=== PATIENT | male | born 1965 | race Caucasian/White ===

== ENCOUNTER 2021-01-01 15:30 | Emergency (ER) | payer MEDICAID, MEDICARE ==
[2021-01-01] MEDS ORDERED: cefTRIAXone 1 GM, Lidocaine 1% 2.1 ML IM ONE ×2 (16:35)
--- NOTE | 2021-01-01 16:52 | EDM.PDOC ---
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 They are concerned that he is developing cellulitis, he does not have a fever, increased pain or other symptoms. Onset: Unknown/Unsure Location: Reports: Lower Extremity, Right Associated Symptoms: Denies: Fever/Chills, Loss of Appetite, Malaise, Shortness of Breath Right Leg Pain Score (Numeric/FACES): 5 - Related Data Allergies Allergy/AdvReac Type Severity Reaction Status Date / Time No Known Allergies Allergy Verified 01/01/21 16:00 Home Meds: Home Meds Acetaminophen 650 mg PO Q6HR PRN 01/01/21 [History] Aspirin 325 mg PO DAILY 01/01/21 [History] Cholecalciferol (Vitamin D3) [Vitamin D3] 1,000 unit PO DAILY 01/01/21 [History] Docusate Sodium/Sennosides [Senokot-S] 1 each PO BID 01/01/21 [History] FLUoxetine [PROzac] 20 mg PO DAILY 01/01/21 [History] Mecobalamin [B12 Active] 1,000 mcg PO DAILY 01/01/21 [History] Nicotine [Nicotine Patch] 7 mg TD DAILY 01/01/21 [History] Pantoprazole [ProTONIX] 40 mg PO BID 01/01/21 [History] Phenytoin 100 mg PO DAILY 01/01/21 [History] Phenytoin Sodium Extended 200 mg PO BEDTIME 01/01/21 [History] Polyethylene Glycol [Polyox Wsr-301] 17 gm MC DAILY 01/01/21 [History] dexAMETHasone [Dexamethasone] 2 mg PO DAILY 01/01/21 [History] dronabinoL [Dronabinol] 2.5 mg PO BID 01/01/21 [History] levETIRAcetam [Levetiracetam] 1,000 mg PO BID 01/01/21 [History] Past Medical History Other HEENT History: blind in right eye Other Neuro History: glioblastoma Social & Family History - Tobacco Use Tobacco Use Status *Q: Current Every Day Tobacco User Years of Tobacco use: 37 Packs/Tins Daily: 1 - Caffeine Use Caffeine Use: Reports: Coffee - Recreational Drug Use Recreational Drug Use: No Review of Systems - Review of Systems Review Of Systems: See Below Constitutional: Denies: Fever Respiratory: Denies: Shortness of Breath Cardiovascular: Denies: Chest Pain GI/Abdominal: Denies: Abdominal Pain, Nausea, Vomiting Skin: Reports: Erythema, Other (Chronic ulceration right ankle) Neurological: Reports: Confusion (Stable intermittent confusion, patient is being treated for glioblastoma) ED EXAM, GENERAL - Physical Exam Exam: See Below Exam Limited By: No Limitations General Appearance: Alert, No Apparent Distress Head: Atraumatic Respiratory/Chest: No Respiratory Distress, Lungs Clear Cardiovascular: Regular Rate, Rhythm Neurological: Alert, Oriented Psychiatric: Flat Affect Skin Exam: Warm, Dry, Erythema, Other (A dressing is over his chronic ulceration of the right ankle, this was not removed. There was mild erythema around the dressing but no significant warmth or tenderness) Course - Vital Signs Last Recorded V/S: Last Vital Signs Temp 97.3 F 01/01/21 16:22 Pulse 76 01/01/21 16:22 Resp 16 01/01/21 16:22 BP 136/95 H 01/01/21 16:22 Pulse Ox 92 L 01/01/21 16:22 - Orders/Labs/Meds Meds: Medications Discontinued Medications Generic Name Dose Route Start Last Admin Trade Name Dhavalq PRN Reason Stop Dose Admin Ceftriaxone Sodium 1 gm/ 0 gm 01/01/21 16:35 01/01/21 16:51 Lidocaine HCl 2.1 ml IM 01/01/21 16:36 1 inj ONETIME ONE Administration - Re-Assessments/Exams Free Text/Narrative Re-Assessment/Exam: 01/01/21 16:54 Patient was given 1 g of IM Rocephin with lidocaine to cover any early cellulitis before his appointment tomorrow. Otherwise he can continue his regular medications. Departure - Departure Time of Disposition: 16:59 Disposition: Home, Self-Care 01 Clinical Impression: Cellulitis of right ankle - Discharge Information Instructions: Cellulitis, Adult, [id number] Referrals: Nuris Mckenzie MD [Primary Care Provider] - Forms: ED Department Discharge Care Plan Goals: Continue your current medications, recheck tomorrow as scheduled. Sepsis Event Note (ED) - Evaluation Sepsis Screening Result: No Definite Risk - Focused Exam Vital Signs: Vital Signs Temp Pulse Resp BP Pulse Ox 01/01/21 16:22 97.3 F 76 16 136/95 H 92 L
== END 2021-01-01 17:12 | disposition home or self-care (01) ==
LOC: JP.ED 15:30
DX: L03.115 Cellulitis of right lower limb (principal); Z72.0 Tobacco use
CPT/HCPCS: 96372; 99283; J0696